=== PATIENT | female | born 1990 | race Caucasian/White ===

== ENCOUNTER 2019-01-27 13:30 | Emergency (ER) | payer OTHER ==
[~2019-01-27] VITALS: Wt 81.6 kg
[2019-01-27 13:39] VITALS: BP 124/76
[2019-01-27] MEDS ORDERED: IPRATROPIUM (NEB) 0.5 MG/2.5 ML AMP NEB STA (14:31)
[2019-01-27] MEDS ORDERED: ALBUTEROL 0.083% (NEB) 2.5 MG/3 ML AMP NEB STA (14:31)
[2019-01-27] MEDS ORDERED: predniSONE 20 MG TAB PO STA (14:31)
[2019-01-27 15:14] VITALS: PULSE 98; RESP 19
[2019-01-27] MEDS ORDERED: D-ME118S24 PO (15:23)
[2019-01-27] MEDS ORDERED: PRED20TA PO (15:23)
[2019-01-27] MEDS ORDERED: ALBU18HF INHALATION (15:23)
--- NOTE | 2019-01-27 15:26 | ERD ---
ER Documentation Chief Complaint Chief Complaint COUGH, CONGESTION X3 DAYS ROS All systems reviewed and are negative except as per history of present illness. Medications Home Meds Active Scripts D-Methorphan Hb/P-Epd HCl/Bpm (Amhsexivpa-Oyijpdhguzb-Dg Syr) 118 Ml Syrup, 5 ML PO Q4H PRN for SHORTNESS OF BREATH for 10 Days, #1 BOTTLE Prov:ARSENIO BEDOLLA DO 01/27/19 Prednisone* (Prednisone*) 20 Mg Tab, 40 MG PO DAILY for cough for 4 Days, TAB Prov:ARSENIO BEDOLLA DO 01/27/19 Albuterol Sulfate* (Ventolin HFA*) 18 Gm Hfa.aer.ad, 2 PUFF INHALATION Q4H PRN for COUGH, #1 INHALER Prov:ARSENIO BEDOLLA DO 01/27/19 Allergies Allergies: Coded Allergies: No Known Allergies (Verified Allergy, Mild, 11/27/09) PMhx/Soc History of Surgery: Yes (CSECTION) Hx Neurological Disorder: No Hx Respiratory Disorders: Yes (bronchitis) Hx Cardiac Disorders: No Hx Miscellaneous Medical Probl: No (NO OTHER MEDICAL PROBLEMS) Hx Alcohol Use: No Hx Substance Use: No Hx Tobacco Use: Yes Smoking Status: Never smoker Physical Exam Vitals Vital Signs Date Temp Pulse Resp B/P (MAP) Pulse Ox O2 O2 Flow FiO2 Time Delivery Rate 01/27/19 98 19 98 Room Air 15:14 01/27/19 89 18 97 21 14:53 01/27/19 97.9 79 19 124/76 98 13:39 (92) Physical Exam Const: No acute distress Head: Atraumatic Eyes: Normal Conjunctiva ENT: Normal External Ears, Nose and Mouth. Neck: Full range of motion. No meningismus. Resp: Clear to auscultation bilaterally Cardio: Regular rate and rhythm, no murmurs Abd: Soft, non tender, non distended. Normal bowel sounds Skin: No petechiae or rashes Back: No midline or flank tenderness Ext: No cyanosis, or edema Neur: Awake and alert Psych: Normal Mood and Affect Results 24 hrs Current Medications Medications Dose Sig/Estuardo Start Time Status Last (Trade) Ordered Route PRN Stop Time Admin Dose Reason Admin Albuterol 5 mg ONCE STAT 01/27/19 DC 01/27/19 (Proventil NEB 14:31 01/27/19 14:52 0.083% (Neb)) 14:33 Ipratropium 0.5 mg ONCE STAT 01/27/19 DC 01/27/19 [place] NEB 14:31 01/27/19 14:52 (Atrovent 14:33 0.02% (Neb)) Prednisone 60 mg ONCE STAT 01/27/19 DC 01/27/19 (Prednisone) PO 14:31 01/27/19 14:37 14:33 Departure Diagnosis: Primary Impression: Cough Condition: Fair Patient Instructions: Cough, Chronic, Uncertain Cause, (Adult) Referrals: [facility] YOU HAVE RECEIVED A MEDICAL SCREENING EXAM AND THE RESULTS INDICATE THAT YOU DO NOT HAVE A CONDITION THAT REQUIRES URGENT TREATMENT IN THE EMERGENCY DEPARTMENT. FURTHER EVALUATION AND TREATMENT OF YOUR CONDITION CAN WAIT UNTIL YOU ARE SEEN IN YOUR DOCTORS OFFICE WITHIN THE NEXT 1-2 DAYS. IT IS YOUR RESPONSIBILITY TO MAKE AN APPOINTMENT FOR FOLOW-UP CARE. IF YOU HAVE A PRIMARY DOCTOR --you should call your primary doctor and schedule an appointment IF YOU DO NOT HAVE A PRIMARY DOCTOR YOU CAN CALL OUR PHYSICIAN REFERRAL HOTLINE AT IF YOU CAN NOT AFFORD TO SEE A PHYSICIAN YOU CAN CHOSE FROM THE FOLLOWING [facility] [address] [facility]. [facility] [address] [facility] [facility] [address] [facility] [facility] [address] [facility]. [facility] [address] [facility]. [facility]. [address] Additional Instructions: Call your primary care doctor TOMORROW for an appointment during the next 1-2 days.See the doctor sooner or return here if your condition worsens before your appointment time. ARSENIO BEDOLLA DO Jan 27, 2019 15:26
== END 2019-01-27 15:29 | disposition home or self-care (01) ==
LOC: FTE 13:30
DX: R05 Cough (principal); Z87.891 Personal history of nicotine dependence
CPT/HCPCS: 94664; J7512; Z7502; Z7610